=== PATIENT | female | born 2005 | race Caucasian/White ===

== ENCOUNTER 2024-01-28 17:21 | Emergency (ER) | payer BC, OTHER ==
[~2024-01-28] VITALS: Ht 162.6 cm; Wt 46.3 kg
[2024-01-28 17:58] LABS: Urine Bacteria None Seen /hpf (None Seen)
[2024-01-28 18:22] LABS: Urine Blood Negative /uL (Negative); Urine Clarity Clear (Clear); Urine Color Light-Yellow (Yellow); Urine Mucus FEW (None Seen); Urine Protein, UAD TRACE (Negative); Urine Specific Gravity 1.017 (1.001-1.035); Urine Urobilinogen Normal (Negative); Urine WBC 1 /hpf (0 - 5); Urine pH 5.5 (5.0-9.0)
[2024-01-28] MEDS ORDERED: IBUP-1456 PO (23:33)
[2024-01-28 23:34] VITALS: BP 137/110; PULSE 76; RESP 18; TEMP 97.8; O2SAT 99
== END 2024-01-28 23:50 | disposition home or self-care (01) ==
LOC: ER 17:21
DX: M54.50 Low back pain, unspecified (principal); Z87.440 Personal history of urinary (tract) infections; Z87.42 Personal history of other diseases of the female genital tract; Z79.1 Long term (current) use of non-steroidal anti-inflammatories (NSAID)
CPT/HCPCS: 81001; 81025

== ENCOUNTER 2024-12-17 13:22 | Emergency (ER) | payer BC ==
[~2024-12-17] VITALS: Ht 162.6 cm; Wt 48.5 kg
[~2024-12-17 13:22] MED LIST: IBUP-1456 PO
--- NOTE | 2024-12-17 14:50 | ED.PDOC ---
Foreign Body HPI Comments 19 year F presents for possible FB Concerned about nose that may have gone into nostrils Chief Complaint: Foreign Body Time Seen by MD: 14:28 Primary Care Provider: GABRIELLE History of Present Illness: Nurses Notes, Medications, Allergies Allergies: Coded Allergies: NO KNOWN ALLERGIES (Unverified , 01/28/24) Home Meds Active Scripts Ibuprofen (Ibuprofen) 800 Mg Tab, 1 TAB PO TID PRN, #30 TAB 0 Refills Prov:EDUARDO ERWIN 01/28/24 Information Source: Patient Mode of Arrival: Ambulatory Past Medical History PAST MEDICAL HISTORY: Denies Surgical History: Denies all surgeries BRICKLAYER History: Ovarian Cysts Family History Family History: Unknown Social History Smoker: Non-Smoker Alcohol: Denies ETOH Use Drugs: Marijuana Lives In: Home All Other Systems: Reviewed and Negative (Per HPI) Physical Exam General Appearance: No Apparent Distress, Normal HEENT: Normal ENT Inspection, Pharynx Normal, TMs Normal Neck: Full Range of Motion, Non-Tender, Normal, Normal Inspection Respiratory: Chest Non-Tender, Lungs Clear, No Accessory Muscle Use, No Respiratory Distress, Normal Breath Sounds Cardiovascular: No Murmur, No Gallop, Regular Rate/Rhythm Breast Exam: Deferred Gastrointestinal: No Organomegaly, Non Tender, No Pulsatile Mass, Normal Bowel Sounds, Soft Genitalia: Deferred Pelvic: Deferred Rectal: Deferred Extremities: No calf tenderness, Normal capillary refill, Normal inspection, Normal range of motion, Non-tender, No pedal edema Musculoskeletal : Apperance: Normal Neurologic: Alert, No Motor Deficits, Normal Affect, Normal Mood, No Sensory Deficits Cerebellar Function: Normal Reflexes: Normal Skin: Dry, Normal Color, Warm Lymphatic: No Adenopathy Was a procedure done? Was a procedure done?: No FB Differential Dx Differential Diagnosis: Foreign Body X-Ray, Labs, Meds, VS Vital Signs Date Time Temp Pulse Resp B/P (MAP) Pulse Ox O2 Delivery O2 Flow Rate FiO2 12/17/24 13:28 98.2 71 16 118/62 (80) 98 98.2 X-Ray, Labs, Meds, VS Comment The ROS physical examination there is no indication for imaging at this time. Patient physical exam unremarkable. Return precautions discussed and patient agreed to plan Time of 1ST Reevaluation: 14:49 Reevaluation 1ST: Improved Patient Education/Counseling: Diagnosis, Treatment Family Education/Counseling: Diagnosis, Treatment Departure 1 Departure Time of Disposition: 14:49 Impression: Primary Impression: Foreign body sensation, nose Disposition: 01 HOME / SELF CARE / HOMELESS Condition: Stable Critical Care Note Critical Care Time?: No Stability Stability form required: No Heart Score Heart Score: Heart Score Response (Comments) Value History N/A 0 EKG N/A 0 Age N/A 0 Risk Factors N/A 0 Troponin N/A 0 Total 0 JAD [employer]AS [employer] Dec 17, 2024 14:50
[2024-12-17 14:54] VITALS: BP 118/62; PULSE 71; RESP 16; TEMP 98.2; O2SAT 98
== END 2024-12-17 14:55 | disposition home or self-care (01) ==
LOC: ER 13:22
DX: R09.A1 Foreign body sensation, nose (principal); F12.90 Cannabis use, unspecified, uncomplicated; Z79.899 Other long term (current) drug therapy